=== PATIENT | male | born 1945 | race Caucasian/White ===

== ENCOUNTER 2021-08-03 10:25 | Emergency (ER) | payer OTHER ==
[2021-08-03] MEDS: LORazepam 2 MG/ML SDV IVPUSH ONE (10:40)
[2021-08-03] MEDS: Labetalol 20 MG/4 ML Syringe IVPUSH ONE (11:05)
[2021-08-03] MEDS: levETIRAcetam in NaCl (iso-os) 1,000 MG in Premix Bag 1 BAG IV ONE ×2 (11:12)
[2021-08-03 11:15] LABS: ANION GAP 9.9 mEq/L (7-13); CHLORIDE,CL 102 mmol/L (98-107); SODIUM,NA 137 mmol/L (136-145)
[2021-08-03] MEDS: MANNITOL IV SCH (11:20)
[2021-08-03] MEDS: Labetalol 20 MG/4 ML Syringe ONE (11:20)
[2021-08-03] MEDS: LORazepam 2 MG/ML SDV ONE ×2 (11:20)
[2021-08-03 11:40] LABS: PTT,PARTIAL THROMBOPLSTIN TIME 26.4 SEC (22.0-34.0)
[2021-08-03 11:41] LABS: RESPIRATORY SYNCYTIAL VIR NAA NEGATIVE (NEGATIVE)
[2021-08-03 11:43] LABS: CORONAVIRUS COVID-19 NAA POSITIVE (NEGATIVE)
== END 2021-08-03 12:06 ==
LOC: DL.ED 10:25
DX: S06.5X0A Traumatic subdural hemorrhage without loss of consciousness, initial encounter (principal); R56.9 Unspecified convulsions; Z88.0 Allergy status to penicillin; Z79.4 Long term (current) use of insulin; Z79.899 Other long term (current) drug therapy; Z20.822 Contact with and (suspected) exposure to COVID-19; W18.30XA Fall on same level, unspecified, initial encounter
CPT/HCPCS: 0241U; 36415; 70450; 80053; 80307; 83605; 83735; 83880; 84484; 85025; 85610; 85730; 86140; 93010; 96365; 96367; 96375; 99285; J1953; J2060; J3490

== ENCOUNTER 2021-10-10 22:57 | Emergency (ER) | payer OTHER ==
[~2021-10-10 22:57] MED LIST: Dexamethasone 4 MG/ML SDV IVPUSH ONE
[2021-10-10 23:06] LABS: ANION GAP 11.2 mEq/L (7-13); CHLORIDE,CL 102 mmol/L (98-107); SODIUM,NA 140 mmol/L (136-145)
== END 2021-10-11 00:01 | disposition home or self-care (01) ==
LOC: DL.ED 22:57
DX: I62.00 Nontraumatic subdural hemorrhage, unspecified (principal); R53.1 Weakness; I69.359 Hemiplegia and hemiparesis following cerebral infarction affecting unspecified side; Z88.0 Allergy status to penicillin; Z87.891 Personal history of nicotine dependence; Z79.4 Long term (current) use of insulin
CPT/HCPCS: 36415; 70450; 80053; 81003; 83605; 85025; 85610; 87040; 96374; 99284; 99285-25; J1100